=== PATIENT | male | born 1995 | race Caucasian/White ===

== ENCOUNTER 2018-06-01 02:34 | Emergency (ER) | payer SELFPAY ==
[2018-06-01] MEDS ORDERED: LIDOCAINE 1% PF 30 ML VIAL. (02:55)
[2018-06-01] MEDS: IV NORMAL SALINE 1000ML BAG 1,000 ML IV (03:30)
[2018-06-01] MEDS ORDERED: CONTRAST GIVEN. MC (04:30)
[2018-06-01] MEDS: IOHEXOL 300 MG/ML 100ML VIAL. IV (04:44)
== END 2018-06-01 07:03 | disposition home or self-care (01) ==
LOC: ER 02:34
DX: S01.112A Laceration without foreign body of left eyelid and periocular area, initial encounter (principal); S01.312A Laceration without foreign body of left ear, initial encounter; S01.81XA Laceration without foreign body of other part of head, initial encounter; Z90.89 Acquired absence of other organs; W25.XXXA Contact with sharp glass, initial encounter; Y93.89 Activity, other specified; Y92.89 Other specified places as the place of occurrence of the external cause; Y99.8 Other external cause status
CPT/HCPCS: 12016; 12052; 70498; 99285; J7030; Q9967